=== PATIENT | male | born 1995 | race Caucasian/White ===

== ENCOUNTER 2018-09-07 00:23 | Emergency (ER) | payer OTHER, SELFPAY ==
[2018-09-07 00:24] VITALS: BP 145/84; PULSE 108; RESP 15; TEMP 36.7; BMI 24.4
--- NOTE | 2018-09-07 00:43 | CT_ITS ---
STUDY: CT CERVICAL SPINE WITHOUT CONTRAST REASON FOR EXAM: Male, 23 years old. Fall. Loss of consciousness. Left-sided pain. RADIATION DOSAGE (If Supplied By Facility): CTDIvol = ( 25.68 ) mGy, DLP = ( 546.68 ) mGycm TECHNIQUE: High resolution transaxial imaging was performed without contrast material. Sagittal and coronal images were reconstructed. Individualized dose optimization techniques were used for this CT. COMPARISON: None FINDINGS: Normal craniovertebral junction. Normal anterior atlantoaxial articulation. Normal odontoid process. Normal cervical lordosis. Normal vertebral bodies and posterior osseous elements. C2-3: Normal endplates. Normal disc height and morphology. Normal central canal and intervertebral neuroforamina. C3-4: Normal endplates. Normal disc height and morphology. Normal central canal and intervertebral neuroforamina. C4-5: Normal endplates. Normal disc height and morphology. Normal central canal and intervertebral neuroforamina. C5-6: Normal endplates. Normal disc height and morphology. Normal central canal and intervertebral neuroforamina. C6-7: Normal endplates. Normal disc height and morphology. Normal central canal and intervertebral neuroforamina. C7-T1: Normal endplates. Normal disc height and morphology. Normal central canal and intervertebral neuroforamina. Normal visualized soft tissue structures. CT/Spine Cervical without Contras IMPRESSION: Normal unenhanced CT examination of the cervical spine. Electronically Signed: Garry Moura, at 2:50 EDT Tel , Service support ,
--- NOTE | 2018-09-07 00:43 | CT_ITS ---
HISTORY: FALL DOWN STAIRS/POS. LOC. LAC lt side of head. Pt shielded EXAMINATION: CT Head or Brain W/O Contrast TECHNIQUE: Multiple axial images were obtained of the brain without intravenous contrast. A radiation dose optimization technique was used for this scan. IV Contrast dosage and agent: None. COMPARISON: None FINDINGS: Normal ventricles and normal shane-white matter differentiation. No intracranial mass, hemorrhage, or acute parenchymal abnormality. Posterior fossa structures are unremarkable. No suspicious extra-axial fluid collection. The calvarium appears intact. As visualized, the mastoids and paranasal sinuses are clear. CT/Brain/Head without Contrast IMPRESSION: Normal CT brain without contrast. Individualized dose optimization techniques were used for this CT. at 0138 Reported and signed by: Jayme Rose MD Electronically Signed: Jayme Rose, at 1:37 EDT Tel , Service support ,
--- NOTE | 2018-09-07 00:44 | RAD_ITS ---
HISTORY: pt fell down steps tonight. left side chest pain. EXAMINATION/TECHNIQUE: XR Chest 1 View: Portable COMPARISON: None FINDINGS: Normal heart and mediastinum. Lung volumes appear normal. No vascular congestion, pleural effusion, or acute pulmonary infiltration. No pneumothorax. The bony thorax appears intact. RAD/Chest 1 View (Portable) IMPRESSION: Normal chest. at 0110 Reported and signed by: Jayme Rose MD Electronically Signed: Jayme Rose, at 1:09 EDT Tel , Service support ,
--- NOTE | 2018-09-07 00:44 | ED.VISSUMM ---
- ER Visit Summary Date of Service: 09/07/18 Chief Complaint: Fall History of Present Illness: The patient is a [address] Garcia. He reports that he was on the steps and lost his balance. He fell off the steps. He is unsure how high this was. He did hit his head and had a loss of consciousness for an unclear period of time. He complains of a headache that is 10 out of 10 in severity. He reports he has pain to the posterior ribs on the left that is also 10 out of 10 severity. He denies any shortness of breath. He denies any back or extremity pain. Patient is unsure when his last tetanus shot was. He reports that he had 5-6 beers tonight. Physical Examination: Vitals: Stable. Afebrile. Head: 3 synovator laceration to the left parietal area. Minimal active bleeding. Neck: No vertebral tenderness. Full ROM without difficulty. Unable to clear by the Nexus criteria due to his intoxication. Back: No vertebral tenderness. General: A&O x 3. NAD. Cardiovascular exam: Regular rate and rhythm, no murmur, rub or gallop. Respiratory exam: Moderate tenderness to palpation to the posterior ribs on the left. No pain with anterior posterior compression of his chest. No crepitus. Clear to auscultation bilaterally. No wheezes or stridor. Abdominal exam: Soft, nontender, nondistended, normal bowel sounds. No pain in RUQ or LUQ specifically. No peritoneal signs. Extremity: Atraumatic. No pain with range of motion. Test Results: CT brain shows no intercranial hemorrhage. CT C-spine shows no acute disease. Chest x-ray shows no obvious rib fractures or pneumothorax. Emergency Department Course and Treatment: Patient had his tetanus updated. He was treated with Tylenol for his pain. He refused other pain medications. He had his wound anesthetized and repaired. He tolerated this well. Treatment Plan: Patient will be discharged instructions to follow-up with his primary care physician in 10 days for staple removal. Return to the emergency department for any worsening symptoms. Disposition: To home in improved and stable condition. Impression: 1. Fall. 2. Concussion. 3. Scalp laceration, 3 cm, repaired. 4. Chest wall contusion. Procedure note: Wound was cleansed with chlorhexidine soap. Anesthetized with 1% lidocaine without epinephrine. Copiously irrigated with normal saline. Wound was explored there is no foreign material present. It was closed with 3 puja. The patient tolerated it well. This note was generated with [employer] dictation software. It may contain incorrect words, spelling, and punctuation that were not noted in review of the chart prior to signing ED Disposition - Plan for ED Patient: Instructions: ED Concussion Referrals: Kel Bingham [Primary Care Provider] - 10 Day for suture removal
[2018-09-07] MEDS: Diphth,Pertuss(Acell),Tet Vac 0.5 ML Vial IM (00:50)
[2018-09-07] MEDS: Acetaminophen 500 MG Tablet 1000 MG PO (00:51)
[2018-09-07 02:23] VITALS: BP 133/88; PULSE 97; RESP 15; O2SAT 99
[2018-09-07] MEDS: HYDROcodone Bitartrate/Apap 5/325 Tablet PO (02:34)
[2018-09-07 02:58] VITALS: BP 133/88; PULSE 97; RESP 15; O2SAT 99
== END 2018-09-07 02:59 | disposition home or self-care (01) ==
PROVIDERS: Emergency Provider Emergency Medicine; Family Provider Family Medicine; PCP Family Medicine
DX: S01.01XA Laceration without foreign body of scalp, initial encounter (principal); S06.0X9A Concussion with loss of consciousness of unspecified duration, initial encounter; S20.212A Contusion of left front wall of thorax, initial encounter; W10.9XXA Fall (on) (from) unspecified stairs and steps, initial encounter; Y93.9 Activity, unspecified; Y92.9 Unspecified place or not applicable; Y99.9 Unspecified external cause status; Z23 Encounter for immunization; F10.129 Alcohol abuse with intoxication, unspecified
CPT/HCPCS: 12002; 70450; 71045; 72125; 90715; 99284

== ENCOUNTER 2018-09-16 18:04 | Emergency (ER) | payer OTHER, SELFPAY ==
[2018-09-16 18:05] VITALS: BP 122/82; PULSE 92; RESP 18; TEMP 36.6; O2SAT 98; BMI 23.6
--- NOTE | 2018-09-16 18:51 | CT_ITS ---
STUDY: CT BRAIN WITHOUT CONTRAST REASON FOR EXAM: Male, 23 years old. Headache RADIATION DOSAGE (If Supplied By Facility): DLP = ( 812.98 ) mGycm TECHNIQUE: Transaxial CT imaging of the brain was performed without administration of intravenous contrast material. Individualized dose optimization techniques were used for this CT. COMPARISON: CT head September 07, 2018 FINDINGS: There is no acute bleed or infarct. There are normal white matter tracts. The ventricles are normal in configuration. There is no hydrocephalus. The visualized paranasal sinuses are clear. The mastoid air cells are well aerated. There is no skull fracture. CT/Brain/Head without Contrast IMPRESSION: No acute intracranial abnormality. Electronically Signed: Chapito Solares, at 19:16 EDT Tel , Service support ,
--- NOTE | 2018-09-16 20:12 | ED.VISSUMM ---
- ER Visit Summary Date of Service: 09/16/18 Chief Complaint: Concussion History of Present Illness: The patient is a 23 M Who states a little over week ago he fell off a staircase causing head injury on the left side of his head. He received puja. He had a CT brain and cervical spine that were negative. States he followed up with his primary care physician on Wednesdays due to continued headache and nausea. States that today his left arm felt numb and tingly and was advised to come to the emergency department. He states he was still able to move the arm and the strength still there just the sensation seemed different. He notes no further vomiting. He is due to see his doctor tomorrow to have his puja removed to see how his caution is healing. He notes continued light sensitivity. Physical Examination: Afebrile vital signs are stable Gen: Well-nourished well-developed sitting in a darkened room with sunglasses on Head: Normocephalic healing scalp laceration. Eyes: Perrl EOMI mild light sensitivity ENT: TMs clear no rhinorrhea moist mucous membranes Neck: Supple no lymphadenopathy no JVD nontender CVS: Regular rate rhythm no murmurs normal S1-S2 Respiratory: No distress clear to auscultation bilaterally chest nontender Abdomen: Soft nontender nondistended normal bowel sounds no masses Back: Nontender Extremity: Nontender no edema Skin: Normal color no rash Neuro: alert orientated ?3 CN II-XII intact normal strength sensation reflexes gait cerebellar Psych: Normal affect normal mood Test Results: CT brain showed no acute findings. Specifically no delayed bleeding. Emergency Department Course and Treatment: I will write for Zofran. Patient is to follow-up with his primary care physician tomorrow. I suggested that he may need to see the concussion clinic. Impression: Postconcussive syndrome This note was generated with [employer] dictation software. It may contain incorrect words, spelling, and punctuation that were not noted in review of the chart prior to signing ED Disposition - Plan for ED Patient: Disposition: Home or Assisted Living Instructions: ED Concussion Prescriptions: Ondansetron [Zofran Odt] 4 mg PO Q6H PRN PRN #20 tab PRN Reason: Nausea Referrals: Kel Bingham [Primary Care Provider] - Keep Luises appointment
== END 2018-09-16 20:20 | disposition home or self-care (01) ==
PROVIDERS: Emergency Provider Emergency Medicine; Family Provider Family Medicine; PCP Family Medicine
DX: F07.81 Postconcussional syndrome (principal); S01.01XA Laceration without foreign body of scalp, initial encounter; W10.9XXA Fall (on) (from) unspecified stairs and steps, initial encounter; Y93.9 Activity, unspecified; Y92.9 Unspecified place or not applicable; Y99.9 Unspecified external cause status
CPT/HCPCS: 70450; 99282

== ENCOUNTER → 2023-07-15 | Outpatient (CLI) | payer OTHER, SELFPAY ==
[2023-07-15 17:51] LABS: Erythrocyte Sedimentation Rate < 1 mm/hr (0-20)
[2023-07-15 17:56] LABS: CRP < 2.90 mg/L (0.0-3.0)
[2023-07-17 14:09] LABS: Endomysial Antibody IgA Negative (Negative); Immunoglobulin A 110 mg/dL (90-386); t-Transglutaminase IgA <2 U/mL (0-3)
== END | disposition home or self-care (01) ==
PROVIDERS: PCP Family Medicine; Referring Provider Internal Medicine Gastroenterology; Visit Provider Internal Medicine Gastroenterology
DX: R19.7 Diarrhea, unspecified (principal)
CPT/HCPCS: 36415; 82784; 83516; 85652; 86140; 86255

== ENCOUNTER → 2023-07-16 | Outpatient (CLI) | payer OTHER, SELFPAY | END | disposition home or self-care (01) | LOC: LAB.FUTURE 04:47 | PROVIDERS: PCP Family Medicine; Visit Provider Internal Medicine Gastroenterology | DX: R19.7 Diarrhea, unspecified (principal) ==

== ENCOUNTER → 2023-07-19 | Outpatient (CLI) | payer OTHER, SELFPAY ==
[2023-07-25 18:08] LABS: Calprotectin, Stool 43 ug/g (0-120)
== END | disposition home or self-care (01) ==
PROVIDERS: PCP Family Medicine; Referring Provider Internal Medicine Gastroenterology; Visit Provider Internal Medicine Gastroenterology
DX: R19.7 Diarrhea, unspecified (principal)
CPT/HCPCS: 83993

== ENCOUNTER → 2023-08-05 | Outpatient (CLI) | payer OTHER, SELFPAY ==
--- NOTE | 2023-08-05 15:22 | CT_ITS ---
ACR Level 3 findings have been noted. An addendum which confirms receipt of the report will follow. STUDY: CT ABDOMEN AND PELVIS WITH CONTRAST REASON FOR EXAM: Male, 28 years old. Abnormal weight loss RADIATION DOSAGE (If Supplied By Facility): CTDIvol = ( 12.02 ) mGy, DLP = ( 1186.02 ) mGycm TECHNIQUE: Transaxial images were obtained from the dome of the diaphragm to the symphysis pubis without oral contrast. Oral and amp; IV BREEZA NEUTRAL and amp; 100mL Isovue-300 was administered. Sagittal and coronal images were reconstructed. Individualized dose optimization techniques were used for this CT. COMPARISON: None. FINDINGS: The visualized lung bases are unremarkable. The visualized portions of the heart are within normal limits. Normal liver. Normal gallbladder and extrahepatic biliary system. Normal spleen. Normal pancreas. Normal bilateral adrenal glands. Normal right kidney. Normal left kidney. Normal visualized stomach. Multiple air-fluid levels throughout the proximal small bowel probable transition point mid segment. Normal colon. Appendix not identified. Normal abdominal aorta. Normal inferior vena cava. Normal retroperitoneum. Normal urinary bladder. Normal abdominal wall. Normal osseous structures. CT/Abdomen/Pelvis WITH Contrast IMPRESSION: Probable low-grade small bowel obstruction. Surgical consultation recommended. Electronically Signed: Sanjiv Carrillo MD at 0:09 EDT ,
== END | disposition home or self-care (01) ==
PROVIDERS: PCP Family Medicine; Referring Provider Internal Medicine Gastroenterology; Visit Provider Internal Medicine Gastroenterology
DX: R63.4 Abnormal weight loss (principal); R19.7 Diarrhea, unspecified
CPT/HCPCS: 74177; Q9967

== ENCOUNTER → 2023-10-07 | Outpatient (CLI) | payer OTHER, SELFPAY ==
[2023-10-08 15:09] LABS: Giardia Lamblia, Stool EIA Negative (Negative)
== END | disposition home or self-care (01) ==
PROVIDERS: PCP Family Medicine; Referring Provider Internal Medicine Gastroenterology; Visit Provider Internal Medicine Gastroenterology
DX: R19.7 Diarrhea, unspecified (principal)
CPT/HCPCS: 82705; 87329

== ENCOUNTER 2023-10-17 15:55 | Inpatient (IN) | payer OTHER, SELFPAY ==
[2023-10-17] VITALS (7 sets, daily range): BP systolic 115–153; BP diastolic 70–102; PULSE 69–120; RESP 12–18; TEMP 36.5–37.1; O2SAT 98–100; BMI 23.3
[2023-10-17 16:40] LABS: Absolute Lymphocyte Count 1.08 X10^3/uL (0.83-4.51); Absolute Neutrophil Count 5.7 X10^3/uL (2.0-7.7); Basophil# 0.05 X10^3/uL; Basophil% 0.7 % (0-1); Eosinophil# 0.02 X10^3/uL; Eosinophils% 0.3 % (0-5); Hemoglobin 15.2 g/dL (13.0-16.5); Lymphocyte # 1.08 X10^3/ul (0.83-4.51); Lymphocyte % 14.4 % (19-41); Mean Corp Hgb Conc 37.1 g/dL (32-36); Mean Corpuscular Hgb 33.7 pg (27.0-32.0); Mean Corpuscular Volume 90.9 fL (80-94); Mean Platelet Vol. 9.1 fl (6.2-12.0); Monocyte# 0.62 X10^3/uL; Monocyte% 8.3 % (0-10); NRBC Flagged by Analyzer 0 % (0-5); Neutrophil # 5.72 X10^3/uL (2.7-7.7); Platelet Count 184 K/mm3 (150-450); RBC Distribution Width CV 10.9 % (11.6-14.6); RBC Distribution Width SD 36.7 fl (35.1-43.9); Red Blood Count 4.51 M/mm3 (4.6-6.2); White Blood Count 7.5 K/mm3 (4.4-11.0)
[2023-10-17 16:55] LABS: Anion Gap 11 (5-15); BUN 14 mg/dL (7-18); BUN/Creat Ratio 10.9 RATIO (10-20); Calcium,Total 9.6 mg/dL (8.5-10.1); Chloride 99 mmol/L (98-107); Creatinine, Serum 1.29 mg/dL (0.70-1.30); EST Glomerular Filtration Rate 70 mL/min (>60); Est Glom Filt Rate - Afr Amer 84 mL/min (>60); Glucose 113 mg/dL (74-106); Potassium 3.3 mmol/L (3.5-5.1); Sodium Level 135 mmol/L (136-145)
[2023-10-17 16:57] LABS: Alcohol, Blood (Medical)-Serum < 3.0 mg/dL
--- NOTE | 2023-10-17 17:07 | EDS_ITS ---
HPI <WALT Liu - Last Filed: 10/17/23 18:47> History of Present Illness Chief Complaint: Substance Abuse Narrative Narrative: 28-year-old male states he drinks anywhere from 6-18 beers daily over the last 3 months. He thinks his last drink was around October 12. He states he had a few days of nausea vomiting and diarrhea but today has been able to keep down water. However he is concerned because last night he became paranoid and started having what he thinks are hallucinations. He heard his son crying and playing under the bed although he was not in the house. He was sitting in a quiet room when he started hearing music even though nothing was playing. He states he is serious about wanting to get clean from alcohol and is here requesting detox. He takes medications for IBS and he started buspirone yesterday from his primary care for anxiety. He also chews tobacco. He denies any other recreational drug use. No history of seizures. [facility] <WALT Liu - Last Filed: 10/17/23 18:47> [facility] Medical History (Updated 10/17/23 @ 18:47 by WALT Liu) IBS (irritable bowel syndrome) Anxiety Home Medications ?Medication ?Instructions ?Recorded ?Last Taken ?Type buspirone 5 mg tablet 5 mg PO BID 10/17/23 Unknown History hyoscyamine sulfate 0.125 mg 0.125 mg sublingual DAILY 10/17/23 Unknown History sublingual tablet Allergy/AdvReac Type Severity Reaction Status Date / Time cefaclor (From [facility]) Allergy Unknown Verified 10/17/23 15:56 Surgical History (Updated 10/17/23 @ 16:47 by Luis Teixeira) Hx of tonsillectomy Social History Smoking Status: Current some day smoker tobacco type: cigarettes and smokeless tobacco ROS <WALT Liu - Last Filed: 10/17/23 18:47> ROS ED ROS Narrative Constitutional: Negative for fever, chills, malaise. CVS: Negative for chest pain. Respiratory: Negative for shortness of breath. GI: Positive for nausea, vomiting, diarrhea. EXAM <WALT Liu - Last Filed: 10/17/23 18:47> Physical Exam Narrative Exam Narrative: CONST: Patient sitting in no acute distress. EYES: Normal inspection. NECK: Normal inspection. RESP: No respiratory distress, CTAB. CVS: Regular rate and rhythm, no murmur, no gallop. SKIN: Color normal, no rash, warm, dry, intact. EXTREMITIES: Normal appearance, no pedal edema. NEURO: Alert and answering questions appropriately. PSYCH: Mildly anxious. Const Vital Signs: 10/17/23 15:56 10/17/23 16:55 10/17/23 17:00 Temperature 97.7 F L Temperature Source Temporal Pulse Rate 120 H 69 78 Respiratory Rate 18 18 18 Blood Pressure 141/102 H 128/74 H 145/71 H Blood Pressure Mean 115 92 95 Pulse Ox 98 99 99 Oxygen Delivery Method Room Air Room Air Room Air 10/17/23 17:36 10/17/23 18:00 Temperature 98.7 F Temperature Source Pulse Rate 94 82 Respiratory Rate 16 16 Blood Pressure 124/88 H 115/70 Blood Pressure Mean 100 85 Pulse Ox 100 98 Oxygen Delivery Method Room Air <Fletcher Wing MD - Last Filed: 10/17/23 19:41> Physical Exam Const Vital Signs: 10/17/23 15:56 10/17/23 16:55 10/17/23 17:00 Temperature 97.7 F L Temperature Source Temporal Pulse Rate 120 H 69 78 Respiratory Rate 18 18 18 Blood Pressure 141/102 H 128/74 H 145/71 H Blood Pressure Mean 115 92 95 Pulse Ox 98 99 99 Oxygen Delivery Method Room Air Room Air Room Air 10/17/23 17:36 10/17/23 18:00 Temperature 98.7 F Temperature Source Pulse Rate 94 82 Respiratory Rate 16 16 Blood Pressure 124/88 H 115/70 Blood Pressure Mean 100 85 Pulse Ox 100 98 Oxygen Delivery Method Room Air MDM <WALT Liu - Last Filed: 10/17/23 18:47> [facility] Narrative Medical decision making narrative: Patient here for alcohol detox. His last drink was 4 days ago and he had N/V/D symptoms which have improved but he is now having paranoia and hallucinations. He appears anxious but nontoxic. He was tachycardic around 120 in triage but during my examination has normal vital signs. Overall exam is benign. CBC is within normal limits. Sodium is 135, potassium 3.3, normal renal function. Liver enzymes are elevated with AST of 385, ALT 344, total bilirubin 1.6, normal alk phos of 78. Urine drug screen is negative and alcohol level negative. Case was discussed with the hospitalist for admission. Lab Data Attestation: I reviewed the patient's lab results. Labs: Laboratory Results - last 24 hr 10/17/23 16:20 WBC 7.5 RBC 4.51 L Hgb 15.2 Hct 41.0 MCV 90.9 MCH 33.7 H MCHC 37.1 H RDW Std Deviation 36.7 RDW Coeff of Augustin 10.9 L Plt Count 184 MPV 9.1 Immature Gran % (Auto) 0.300 Neut % (Auto) 76.0 H Lymph % (Auto) 14.4 L [place] % (Auto) 8.3 Eos % (Auto) 0.3 Baso % (Auto) 0.7 Absolute Neuts (auto) 5.7 Absolute Lymphs (auto) 1.08 Nucleated RBC % 0 Sodium 135 L Potassium 3.3 L Chloride 99 Carbon Dioxide 25.0 Anion Gap 11 BUN 14 Creatinine 1.29 Est GFR (MDRD) Af Amer 84 Est GFR (MDRD) Non-Af 70 BUN/Creatinine Ratio 10.9 Glucose 113 H Calcium 9.6 Phosphorus 3.2 Magnesium 2.2 Total Bilirubin 1.60 H Direct Bilirubin 0.46 H AST 385 H ALT 344 H Alkaline Phosphatase 78 Total Protein 7.5 Albumin 4.0 Globulin 3.5 Urine Opiates Screen NEGATIVE Urine Methadone Screen NEGATIVE Ur Barbiturates Screen NEGATIVE Ur Phencyclidine Scrn NEGATIVE Ur Amphetamines Screen NEGATIVE MDMA (Ecstasy) Screen NEGATIVE U Benzodiazepines Scrn NEGATIVE Urine Cocaine Screen NEGATIVE U Cannabinoids Screen NEGATIVE Ur Drug Screen Comment Ethyl Alcohol < 3.0 <Fletcher Wing MD - Last Filed: 10/17/23 19:41> [facility] Lab Data Labs: Laboratory Results - last 24 hr 10/17/23 16:20 WBC 7.5 RBC 4.51 L Hgb 15.2 Hct 41.0 MCV 90.9 MCH 33.7 H MCHC 37.1 H RDW Std Deviation 36.7 RDW Coeff of Augustin 10.9 L Plt Count 184 MPV 9.1 Immature Gran % (Auto) 0.300 Neut % (Auto) 76.0 H Lymph % (Auto) 14.4 L [place] % (Auto) 8.3 Eos % (Auto) 0.3 Baso % (Auto) 0.7 Absolute Neuts (auto) 5.7 Absolute Lymphs (auto) 1.08 Nucleated RBC % 0 Sodium 135 L Potassium 3.3 L Chloride 99 Carbon Dioxide 25.0 Anion Gap 11 BUN 14 Creatinine 1.29 Est GFR (MDRD) Af Amer 84 Est GFR (MDRD) Non-Af 70 BUN/Creatinine Ratio 10.9 Glucose 113 H Calcium 9.6 Phosphorus 3.2 Magnesium 2.2 Total Bilirubin 1.60 H Direct Bilirubin 0.46 H AST 385 H ALT 344 H Alkaline Phosphatase 78 Total Protein 7.5 Albumin 4.0 Globulin 3.5 Urine Opiates Screen NEGATIVE Urine Methadone Screen NEGATIVE Ur Barbiturates Screen NEGATIVE Ur Phencyclidine Scrn NEGATIVE Ur Amphetamines Screen NEGATIVE MDMA (Ecstasy) Screen NEGATIVE U Benzodiazepines Scrn NEGATIVE Urine Cocaine Screen NEGATIVE U Cannabinoids Screen NEGATIVE Ur Drug Screen Comment Ethyl Alcohol < 3.0 Management Discussion w/another healthcare provider: Hospitalist Treatment and Re-Evaluation :: Dr. Wing: I have personally performed a face to face assessment of the patient and have reviewed the POLLY Note. I performed a substantive portion of the visit including all aspects of the following. My bell findings include: History is detox from alcohol. No prior rehab reportedly. Last drink 3 to 4 days ago, but had hallucinations today. Exam is afebrile. Vital signs noted. Positive tachycardia. Mild shakiness. Lungs clear to auscultation bilaterally. Abdomen soft nontender with normal active bowel sounds. Medical Decision Making: Check labs. Discussed with hospitalist for detox admission. Admit in stable condition. Other additions or changes: [None] Discharge Plan Dx/Rx/DC Orders Clinical Impression: Alcohol abuse, Desire for detoxification, Transaminitis Disposition Disposition: Acute Care Hospital [facility] Discharge Date/Time: 10/17/23 18:52
[2023-10-17 17:08] LABS: Amphetamine Urine VISTA NEGATIVE (<1000 ng/mL); Barbiturate Urine VISTA NEGATIVE (< 200 ng/mL); Benzodiazepine Urine VISTA NEGATIVE (< 200 ng/mL); Cocaine Urine VISTA NEGATIVE (< 300 ng/mL); Ecstacy Urine VISTA NEGATIVE (< 500 ng/mL); Methadone Urine VISTA NEGATIVE (< 300 ng/mL); PCP Urine VISTA NEGATIVE (< 25 ng/mL); THC Urine VISTA NEGATIVE (< 50 ng/mL); Vista UDS pH Range 6
[2023-10-17 18:05] LABS: Magnesium 2.2 mg/dL (1.6-2.6); Phosphorus 3.2 mg/dL (2.5-4.9)
--- NOTE | 2023-10-17 18:20 | HP.PCM.HOS_ITS ---
[facility] - General General Date of Admission: 10/17/23 Date of Service: 10/17/23 Chief Complaint: Acute alcohol withdrawal symptoms for 5 days. HPI Narrative HAMILTON LOCKE, is a 28 male with history of chronic alcohol use disorder with dependence tolerance and withdrawal came to ED for 5 days of alcohol withdrawal symptoms. He stated that he drinks anywhere between 6-24 bottles of beer every day. His last drink was about 18 bottles of beer on Saturday and may be small drink on Saturday. Since then he has not drunken alcohol. For last 5 days he is experiencing auditory and visual hallucinations, goosebumps, tremors, sweating and generalized aches. He said his anxiety is through the roof. He denies any seizure. Complain of insomnia, nightmares and bad dreams. In ED patient, clinically looks dry. Heart rate was 120/min. Blood pressure elevated in systolic 150s. Patient is further admitted on [facility]. He denies history of liver disease including cirrhosis. Denies chronic stigmata of cirrhosis or alcoholic hepatitis. Family history: His maternal grandfather was also alcohol dependence [facility] Medical History IBS (irritable bowel syndrome) Anxiety Home Medications ?Medication ?Instructions ?Recorded ?Last Taken ?Type buspirone 5 mg tablet 5 mg PO BID 10/17/23 Unknown History hyoscyamine sulfate 0.125 mg 0.125 mg sublingual DAILY 10/17/23 Unknown History sublingual tablet Allergy/AdvReac Type Severity Reaction Status Date / Time cefaclor (From [facility]) Allergy Unknown Verified 10/17/23 15:56 Surgical History Hx of tonsillectomy Social History Smoking Status: Current some day smoker tobacco type: cigarettes and smokeless tobacco ROS ROS Narrative Constitutional: Reports very fatigue and weakness. No fever. HEENT: Reports systems reviewed and no addt'l complaints, except as documented Respiratory/Chest: No acute shortness of breath or respiratory distress or wheezing. CVS: No chest pain pressure or tightness. Gastrointestinal: Denies coffee ground emesis, hematemesis or vomiting Genitourinary: Denies burning urination or new urinary tract symptoms Musculoskeletal: Generalized muscle weakness, pain and aches. Denies acute joint pain or limited range of motion. No acute injury Neurologic: Denies seizure-like symptoms. skin: No ulcer. No rash Endocrinology: Reports systems reviewed and no addt'l complaints, except as documented Hematologic/Lymphatic: Reports systems reviewed and no addt'l complaints, except as documented Rest 14 ROS are negative except as mentioned in HPI Vital Signs Vital Signs Vital Signs: 10/17/23 15:56 10/17/23 16:55 10/17/23 17:00 Temperature 97.7 F L Temperature Source Temporal Pulse Rate 120 H 69 78 Respiratory Rate 18 18 18 Blood Pressure 141/102 H 128/74 H 145/71 H Blood Pressure Mean 115 92 95 Pulse Ox 98 99 99 Oxygen Delivery Method Room Air Room Air Room Air 10/17/23 17:36 Temperature 98.7 F Temperature Source Pulse Rate 94 Respiratory Rate 16 Blood Pressure 124/88 H Blood Pressure Mean 100 Pulse Ox 100 Oxygen Delivery Method Physical Exam Narrative General: Alert, Oriented x3, Cooperative HEENT: Atraumatic, PERRLA, EOMI, Normocephalic Oral: Oral mucosa dry. No Gingival or Mucosal Lesions/ Ulcerations Neck: Supple, No JVD, Negative Carotid Bruits Chest wall/Lungs: Air entry diminished in bilateral lung bases. No crepitation/rhonchi Cardiovascular: Regular rate, Regular Rhythm, Normal S1, Normal S2, No M/G/R Abdomen: Bowel Sounds Present, Soft, Non Tender, Non-Distended : No dysuria. No renal angle tenderness. No suprapubic tenderness. Extremities: No edema, Capillary Refill Less than 3 Seconds Skin: No rashes, No breakdown Musculoskeletal: Generalized tremors. Muscle strength 5/5 at major joints. No Tenderness to Palpation of Joints or Extremities Neurological: Cranial nerves II-XII grossly intact, DTR 2+/4. No acute focal neurological deficit. Psych/Mental Status: Anxious, tremors. Results Lab / Micro Data 10/17/23 16:20 10/17/23 16:20 Labs: Laboratory Results - last 24 hr 10/17/23 16:20: WBC 7.5, RBC 4.51 L, Hgb 15.2, Hct 41.0, MCV 90.9, MCH 33.7 H, M CHC 37.1 H, RDW Std Deviation 36.7, RDW Coeff of Augustin 10.9 L, Plt Count 184, MPV 9.1, Immature Gran % (Auto) 0.300, Neut % (Auto) 76.0 H, Lymph % (Auto) 14.4 L, [place] % (Auto) 8.3, Eos % (Auto) 0.3, Baso % (Auto) 0.7, Absolute Neuts (auto) 5.7, Absolute Lymphs (auto) 1.08, Nucleated RBC % 0, Sodium 135 L, Potassium 3.3 L, Chloride 99, Carbon Dioxide 25.0, Anion Gap 11, BUN 14, Creatinine 1.29, Est GFR (MDRD) Af Amer 84, Est GFR (MDRD) Non-Af 70, BUN/Creatinine Ratio 10.9, G lucose 113 H, Calcium 9.6, Phosphorus 3.2, Magnesium 2.2, Urine Opiates Screen NEGATIVE, Urine Methadone Screen NEGATIVE, Ur Barbiturates Screen NEGATIVE, Ur Phencyclidine Scrn NEGATIVE, Ur Amphetamines Screen NEGATIVE, MDMA (Ecstasy) Screen NEGATIVE, U Benzodiazepines Scrn NEGATIVE, Urine Cocaine Screen NEGATIVE, U Cannabinoids Screen NEGATIVE, Ur Drug Screen Comment , Ethyl Alcohol < 3.0 Assessment & Plan Assessment/Plan (1) Acute hyperactive alcohol withdrawal delirium: PLAN: Plan 1. Acute alcohol withdrawal syndrome with history of chronic alcohol use disorder with dependence and tolerance: Patient is being admitted to MedSurg floor. Patient on phenobarbital based order set along with other adjunctive medications gabapentin, Bentyl, Vistaril, clonidine, Klonopin as needed for alcohol withdrawal symptom control. Patient is on thiamine and folate acid. [facility] monitor. logistics project manager 180 consulted. 2. Mild hyponatremia: Sodium is 135. Probably due to low solute intake and beer potomania. IV fluid Ringer lactate ordered. 3. Mild hold for serum potassium more than 5.0: Potassium is being replaced. Serum magnesium and phosphorus level are normal. 4. Unclear chronic or acute on chronic alcoholic hepatitis: No prior liver chemistry to compare. Total bilirubin 1.6, direct 0.4. ALT AST around 350. Alkaline phosphatase normal. Albumin 4.0. Globin 3.5. Right upper quadrant sonogram ordered. Monitor liver chemistry 5. Chronic IBS: Patient takes sublingual hyoscyamine which is nonformulary. 6. Chronic anxiety disorder: Patient on buspirone 5 mg twice daily. Continued. DVT prophylaxis, low risk. Early ambulation encouraged. Full code confirmed with the patient Laboratory Results 10/17/23 16:20: WBC 7.5, RBC 4.51 L, Hgb 15.2, Hct 41.0, MCV 90.9, MCH 33.7 H, M CHC 37.1 H, RDW Std Deviation 36.7, RDW Coeff of Augustin 10.9 L, Plt Count 184, MPV 9.1, Immature Gran % (Auto) 0.300, Neut % (Auto) 76.0 H, Lymph % (Auto) 14.4 L, [place] % (Auto) 8.3, Eos % (Auto) 0.3, Baso % (Auto) 0.7, Absolute Neuts (auto) 5.7, Absolute Lymphs (auto) 1.08, Nucleated RBC % 0, PT Pending, INR Pending, Sodium 135 L, Potassium 3.3 L, Chloride 99, Carbon Dioxide 25.0, Anion Gap 11, BUN 14, Creatinine 1.29, Est GFR (MDRD) Af Amer 84, Est GFR (MDRD) Non-Af 70, BUN/Creatinine Ratio 10.9, Glucose 113 H, Calcium 9.6, Phosphorus 3.2, Magnesium 2.2, Total Bilirubin 1.60 H, Direct Bilirubin 0.46 H, GGT Pending, AST 385 H, A LT 344 H, Alkaline Phosphatase 78, Total Protein 7.5, Albumin 4.0, Globulin 3.5, Urine Opiates Screen NEGATIVE, Urine Methadone Screen NEGATIVE, Ur Barbiturates Screen NEGATIVE, Ur Phencyclidine Scrn NEGATIVE, Ur Amphetamines Screen NEGATIVE, MDMA (Ecstasy) Screen NEGATIVE, U Benzodiazepines Scrn NEGATIVE, Urine Cocaine Screen NEGATIVE, U Cannabinoids Screen NEGATIVE, Ur Drug Screen Comment , Ethyl Alcohol < 3.0 Charges/Coding Visit Charges Inpatient E&M: 29856 Init Hosp L3
[2023-10-17 18:31] LABS: AST(SGOT) 385 U/L (15-37); Alanine Aminotransfer ALT/SGPT 344 U/L (16-61); Alkaline Phosphatase 78 U/L (45-117); Bilirubin, Direct 0.46 mg/dL (0.00-0.30); Globulin 3.5 g/dL (2.2-4.2); Protein, Total 7.5 g/dL (6.4-8.2)
[2023-10-17] MEDS: Potassium Chloride Oral Tablet 20 MEQ 40 MEQ PO (18:48)
[2023-10-17] MEDS: Phenobarbital 32.4 MG Tablet 64.8 MG PO ×2 (19:52→23:21)
[2023-10-17] MEDS: traZODone 100 MG Tablet PO (19:56)
[2023-10-17] MEDS: hydrOXYzine PAM 25 MG Capsule 50 MG PO (19:56)
[2023-10-17] MEDS: Lactated Ringers 1,000 ML 125 ML IV (19:56)
--- NOTE | 2023-10-17 20:23 | US_ITS ---
STUDY: ABDOMINAL ULTRASOUND - RIGHT UPPER QUADRANT REASON FOR VISIT: Male, 28 years old Elevated liver chemistry. -- Including spleen. TECHNIQUE: Ultrasound evaluation of the right upper quadrant was performed with real-time and static shane-scale imaging. TECHNICAL QUALITY: Adequate. COMPARISON: None. FINDINGS: Liver: The liver measures 16.5 cm. There is increased echogenicity consistent with fatty infiltration. The bile ducts are within normal limits. There is hepatic color flow. The direction of portal flow is hepatopetal. There is no demonstrated mass lesion. Gallbladder: Normal distended gallbladder. The gallbladder wall measures 2 mm. There is a negative sonographic Amanda''s sign. There is no pericholecystic fluid. There are no gallstones. Common Bile Duct (C.B.D.): The common bile duct measures mm. Pancreas: There is nonvisualization of the pancreas.. Right Kidney: Normal size of the right kidney. The right kidney measures 10.0 cm. Normal renal cortex. The right cortex measures 1.6 cm. There is no demonstrated renal mass or cyst. There is no right hydronephrosis. US/Abdomen Limited IMPRESSION: Fatty infiltration of liver. Electronically Signed: Justice Kruger MD at 11:18 EDT ,
[2023-10-17] MEDS: Nicotine Polacrilex 2 MG GUM PO (20:34)
[2023-10-17] MEDS: busPIRone 5 MG Tablet PO (20:37)
[2023-10-17 20:41] LABS: International Normalized Ratio 1.1; Prothrombin Time (Protime)PT. 13.9 SECONDS (11.7-14.9)
[2023-10-18] VITALS (24 sets, daily range): BP systolic 89–130; BP diastolic 52–88; PULSE 46–94; RESP 16–22; TEMP 36.2–36.8; O2SAT 96–100; BMI 23.6
--- NOTE | 2023-10-18 00:05 | NURSING ---
Pt brought up from security, Pt found walking around pcu. Pt restless at this time.
[2023-10-18] MEDS: Gabapentin 300 MG Capsule PO (00:54)
--- NOTE | 2023-10-18 02:39 | PN.HOSP_ITS ---
Hospitalist Note Patient with significant hallucinations, attempting to walk off the floor, locking himself in the bathroom with significant paranoia and agitation admitted with acute alcohol withdrawal with significant transaminitis. Given worsening delirium and current presentation we will transition to the ICU, will add an additional phenobarbital IV dose x 1 now and trial Precedex. Per protocol will request involvement of pharmacy benefit manager team.
[2023-10-18] MEDS: hydrOXYzine PAM 25 MG Capsule 50 MG PO ×2 (03:27→15:46)
[2023-10-18] MEDS: Loperamide 2 MG Capsule PO (03:27)
[2023-10-18] MEDS: Phenobarbital 32.4 MG Tablet 64.8 MG PO ×6 (03:27→23:50)
[2023-10-18] MEDS: dexMEDEtomidine 400 MCG in 0.9% Normal Saline (100mL Bag) 96 ML 9.8 MCG CONT INF ×2 (03:41→12:03)
[2023-10-18] MEDS: Phenobarbital Sodium 130 MG/ML Vial 100 MG IV (04:30)
[2023-10-18 05:15] LABS: ALB/GLOB Ratio 1.2 RATIO (0.9-2.4); AST(SGOT) 325 U/L (15-37); Alanine Aminotransfer ALT/SGPT 346 U/L (16-61); Albumin, Serum 3.6 g/dL (3.2-5.0); Alkaline Phosphatase 71 U/L (45-117); Anion Gap 8 (5-15); BUN 14 mg/dL (7-18); BUN/Creat Ratio 11.7 RATIO (10-20); Calcium,Total 9.4 mg/dL (8.5-10.1); Chloride 106 mmol/L (98-107); EST Glomerular Filtration Rate 76 mL/min (>60); Est Glom Filt Rate - Afr Amer 92 mL/min (>60); Estimated Creatinine Clearance 99.69 ml/min; Glucose 140 mg/dL (74-106); Protein, Total 6.6 g/dL (6.4-8.2); Sodium Level 139 mmol/L (136-145)
--- NOTE | 2023-10-18 07:21 | PN.HOSP_ITS ---
Reason for Visit Reason for Visit: Diagnoses Alcohol use, unspecified with withdrawal delirium (10/17/23) Subjective Subjective Per nursing, he did wake up earlier he takes medications but since then somnolence. Objective Data Objective Data Vital Signs: Vital Signs Temp Pulse Resp BP Pulse Ox O2 Del Method 36.7 C 63 20 H 95/63 97 Room Air 10/18/23 03:30 10/18/23 06:00 10/18/23 06:00 10/18/23 06:00 10/18/23 06:00 10/18/23 06:00 Oxygen Delivery Method Room Air Weight: 79 kg Body Mass Index (BMI) 23.6 Intake & Output: Intake and Output for Last 24 Hours 10/16/23 10/17/23 10/18/23 23:59 23:59 23:59 Intake Total 1022.70 / 1022.70 Balance 1022.70 / 1022.70 Lab / Micro Data 10/17/23 16:20 10/18/23 03:20 Labs: Laboratory Results - last 24 hr 10/17/23 16:20: WBC 7.5, RBC 4.51 L, Hgb 15.2, Hct 41.0, MCV 90.9, MCH 33.7 H, M CHC 37.1 H, RDW Std Deviation 36.7, RDW Coeff of Augustin 10.9 L, Plt Count 184, MPV 9.1, Immature Gran % (Auto) 0.300, Neut % (Auto) 76.0 H, Lymph % (Auto) 14.4 L, [place] % (Auto) 8.3, Eos % (Auto) 0.3, Baso % (Auto) 0.7, Absolute Neuts (auto) 5.7, Absolute Lymphs (auto) 1.08, Nucleated RBC % 0, PT 13.9, INR 1.1, Sodium 135 L, Potassium 3.3 L, Chloride 99, Carbon Dioxide 25.0, Anion Gap 11, BUN 14, Creatinine 1.29, Est GFR (MDRD) Af Amer 84, Est GFR (MDRD) Non-Af 70, BUN/Creatinine Ratio 10.9, Glucose 113 H, Calcium 9.6, Phosphorus 3.2, Magnesium 2.2, Total Bilirubin 1.60 H, Direct Bilirubin 0.46 H, AST 385 H, ALT 344 H, Alkaline Phosphatase 78, Total Protein 7.5, Albumin 4.0, Globulin 3.5, Urine Opiates Screen NEGATIVE, Urine Methadone Screen NEGATIVE, Ur Barbiturates Screen NEGATIVE, Ur Phencyclidine Scrn NEGATIVE, Ur Amphetamines Screen NEGATIVE, MDMA (Ecstasy) Screen NEGATIVE, U Benzodiazepines Scrn NEGATIVE, Urine Cocaine Screen NEGATIVE, U Cannabinoids Screen NEGATIVE, Ur Drug Screen Comment , Ethyl Alcohol < 3.0 10/18/23 03:20: Sodium 139, Potassium 3.0 L, Chloride 106, Carbon Dioxide 25.0, Anion Gap 8, BUN 14, Creatinine 1.20, Estim Creat Clear Calc 99.69, Est GFR (MDRD) Af Amer 92, Est GFR (MDRD) Non-Af 76, BUN/Creatinine Ratio 11.7, Glucose 140 H, Calcium 9.4, Total Bilirubin 0.80, AST 325 H, ALT 346 H, Alkaline Phosphatase 71, Total Protein 6.6, Albumin 3.6, Globulin 3.0, Albumin/Globulin Ratio 1.2 Physical Exam Const alert Constitutional Narrative: Sleeping, did not wake to voice. Afebrile. HEENT head/scalp atraumatic and moist oral mucous membranes Neck no lymphadenopathy Neck Narrative: No thyromegaly Resp normal respiratory effort and no retractions GI normal to inspection, nondistended, normoactive bowel sounds Extremity normal to inspection and no clubbing, cyanosis or edema Neuro Sensorium / Orientation: awake and alert Psych affect normal Assessment & Plan Assessment/Plan (1) Acute hyperactive alcohol withdrawal delirium: PLAN: Plan Acute alcohol withdrawal with delirium tremens * Medications are phenobarbital drip, thiamine and folate. Overnight, patient got worse requiring dexmedetomidine drip * When patient is more alert, addiction medicine to see and to help facilitate outpatient addiction programs Hypokalemia: * replace. monitor acute on chronic alcoholic hepatitis: * Right upper quadrant sonogram ordered. * Monitor liver chemistry Chronic conditions: * Chronic IBS: Patient takes sublingual hyoscyamine which is nonformulary. * Chronic anxiety disorder: Patient on buspirone 5 mg twice daily. Continued. DVT prophylaxis, low risk. Early ambulation encouraged. Charges/Coding Visit Charges Inpatient E&M: 22717 Subs Hosp L2
[2023-10-18] MEDS: Potassium Chloride 10mEq/100mL 10 MEQ/100 ML IV.SOLN. 100 MEQ IV BOLUS ×4 (09:04→12:52)
[2023-10-18] MEDS: Thiamine Hydrochloride 100 MG Tablet PO (09:10)
[2023-10-18] MEDS: busPIRone 5 MG Tablet PO ×2 (09:10→19:35)
[2023-10-18] MEDS: Folic Acid 1 MG Tablet PO (09:10)
--- NOTE | 2023-10-18 10:41 | CON.PCM.CC_ITS ---
HPI Consult Data Date of Consult: 10/19/23 HPI Narrative HPI Narrative: HAMILTON LOCKE, is a 28 M who presents [facility] Medical History IBS (irritable bowel syndrome) Anxiety Home Medications ?Medication ?Instructions ?Recorded ?Last Taken ?Type buspirone 5 mg tablet 5 mg PO BID 10/17/23 Unknown History hyoscyamine sulfate 0.125 mg 0.125 mg sublingual DAILY 10/17/23 Unknown History sublingual tablet Allergy/AdvReac Type Severity Reaction Status Date / Time cefaclor (From [facility]) Allergy Unknown Verified 10/17/23 15:56 Surgical History Hx of tonsillectomy Social History Smoking Status: Current some day smoker tobacco type: cigarettes and smokeless tobacco Objective Data Objective Data Vital Signs: Vital Signs Last response 3 Temperature 36.3 C L 10/18/23 09:00 Temperature Source Temporal 10/18/23 09:00 Pulse Rate 65 10/18/23 09:00 Pulse Strength Normal (2+) 10/17/23 22:00 Respiratory Rate 20 H 10/18/23 09:00 Respiratory Effort Normal, Non-Labored 10/18/23 04:00 Respiratory Depth Normal 10/18/23 04:00 Respiratory Pattern Normal 10/18/23 04:00 Blood Pressure 113/72 10/18/23 09:00 Blood Pressure Mean 85 10/18/23 09:00 Blood Pressure Source Monitor 10/18/23 09:00 Blood Pressure Position Semi-Fowlers 10/18/23 09:00 Blood Pressure Location Right Arm 10/18/23 09:00 Pulse Ox 99 10/18/23 09:00 Oxygen Delivery Method Room Air 10/18/23 09:00 I&O: I&O Last 24 Hours 3 10/17/23 10/17/23 10/18/23 11:59 23:59 11:59 Intake Total 1052.10 / 1052.10 Balance 1052.10 / 1052.10 I&O: Total Stay 3 10/17/23 15:55 thru 10/18/23 09:00 Intake Total 1052.10 Balance 1052.10 Current Meds Ordered / Administered: Current meds ordered / Administered 3 Generic Name Dose Route Start Last Admin Trade Name Freq PRN Reason Stop Dose Admin Acetaminophen 500 mg 10/17/23 19:33 Acetaminophen 500 Mg Tablet PO Q4H PRN PRN Pain 1-10 or Temp > 100.4 F Bisacodyl 10 mg 10/17/23 19:33 Bisacodyl 10 Mg Suppository RC DAILY PRN Constipation Buspirone HCl 5 mg 10/17/23 22:00 10/18/23 09:10 Buspirone 5 Mg Tablet PO 5 mg BID NATACHA Administration Dicyclomine HCl 20 mg 10/17/23 19:33 Dicyclomine 10 Mg Capsule PO Q6H PRN PRN abdominal discomfort Folic Acid 1 mg 10/18/23 08:00 10/18/23 09:10 Folic Acid 1 Mg Tablet PO 1 mg DAILY@0800 NATACHA Administration Gabapentin 300 mg 10/17/23 19:33 10/18/23 00:54 Gabapentin 300 Mg Capsule PO 300 mg Q8H PRN PRN Administration moderate to severe anxiety Hydroxyzine Pamoate 50 mg 10/17/23 19:33 10/18/23 03:27 Hydroxyzine Cristina 25 Mg Capsule PO 50 mg Q4H PRN PRN Administration mild anxiety Dexmedetomidine HCl 400 mcg/ 100 mls @ 9.752 mls/hr 10/18/23 03:14 10/18/23 09:00 Sodium Chloride CONT INF 0.5 mcg/kg/hr .[id number] NATACHA 9.8 mls/hr Titration Protocol 0.5 MCG/KG/HR Potassium Chloride 10 meq in 100 mls @ 100 mls/hr 10/18/23 08:00 10/18/23 09:04 IV BOLUS 10/18/23 11:59 100 mls/hr Q1H NATACHA Administration Ibuprofen 400 mg 10/17/23 19:33 Ibuprofen 400 Mg Tablet PO Q8H PRN PRN Pain Score 1-10 Loperamide HCl 2 mg 10/17/23 19:33 10/18/23 03:27 Loperamide 2 Mg Capsule PO 2 mg Q4H PRN PRN Administration Loose Stools Nicotine 21 mg 10/17/23 19:33 10/18/23 09:10 Nicotine 21 Mg Patch TD 21 mg DAILY NATACHA Administration Nicotine Polacrilex 2 mg 10/17/23 20:44 Nicotine Polacrilex 2 Mg Gum PO Q2H PRN PRN SMOKING CESSATION Nutritional Formula (Lactose Free) 120 ml 10/18/23 08:00 10/18/23 09:10 Ensure Plus High Protein 120 Ml Liquid PO Not Given TIDCM NATACHA Ondansetron HCl 8 mg 10/17/23 19:33 Ondansetron 8 Mg Tablet PO Q8H PRN PRN NAUSEA Phenobarbital 97.2 mg 10/17/23 19:33 10/18/23 09:09 Phenobarbital 32.4 Mg Tablet PO 10/22/23 03:32 97.2 mg Q4H NATACHA Administration Taper Senna 2 tablet 10/17/23 19:33 Senna Tablet PO QHS PRN Constipation Thiamine HCl 100 mg 10/18/23 08:00 10/18/23 09:10 Thiamine Hydrochloride 100 Mg Tablet PO 100 mg DAILYCM NATACHA Administration Trazodone HCl 100 mg 10/17/23 19:33 10/17/23 19:56 Trazodone 100 Mg Tablet PO 100 mg QHS PRN Administration INSOMNIA Lab / Micro Data 10/17/23 16:20 10/19/23 03:55 Labs: Laboratory Results - last 24 hr 10/17/23 16:20: WBC 7.5, RBC 4.51 L, Hgb 15.2, Hct 41.0, MCV 90.9, MCH 33.7 H, M CHC 37.1 H, RDW Std Deviation 36.7, RDW Coeff of Augustin 10.9 L, Plt Count 184, MPV 9.1, Immature Gran % (Auto) 0.300, Neut % (Auto) 76.0 H, Lymph % (Auto) 14.4 L, [place] % (Auto) 8.3, Eos % (Auto) 0.3, Baso % (Auto) 0.7, Absolute Neuts (auto) 5.7, Absolute Lymphs (auto) 1.08, Nucleated RBC % 0, PT 13.9, INR 1.1, Sodium 135 L, Potassium 3.3 L, Chloride 99, Carbon Dioxide 25.0, Anion Gap 11, BUN 14, Creatinine 1.29, Est GFR (MDRD) Af Amer 84, Est GFR (MDRD) Non-Af 70, BUN/Creatinine Ratio 10.9, Glucose 113 H, Calcium 9.6, Phosphorus 3.2, Magnesium 2.2, Total Bilirubin 1.60 H, Direct Bilirubin 0.46 H, AST 385 H, ALT 344 H, Alkaline Phosphatase 78, Total Protein 7.5, Albumin 4.0, Globulin 3.5, Urine Opiates Screen NEGATIVE, Urine Methadone Screen NEGATIVE, Ur Barbiturates Screen NEGATIVE, Ur Phencyclidine Scrn NEGATIVE, Ur Amphetamines Screen NEGATIVE, MDMA (Ecstasy) Screen NEGATIVE, U Benzodiazepines Scrn NEGATIVE, Urine Cocaine Screen NEGATIVE, U Cannabinoids Screen NEGATIVE, Ur Drug Screen Comment , Ethyl Alcohol < 3.0 10/18/23 03:20: Sodium 139, Potassium 3.0 L, Chloride 106, Carbon Dioxide 25.0, Anion Gap 8, BUN 14, Creatinine 1.20, Estim Creat Clear Calc 99.69, Est GFR (MDRD) Af Amer 92, Est GFR (MDRD) Non-Af 76, BUN/Creatinine Ratio 11.7, Glucose 140 H, Calcium 9.4, Total Bilirubin 0.80, AST 325 H, ALT 346 H, Alkaline Phosphatase 71, Total Protein 6.6, Albumin 3.6, Globulin 3.0, Albumin/Globulin Ratio 1.2 Assessment and Plan . Assessment and plan: 28 yo alcoholic man admitted 10/17/23 w/ s/s of alcohol w/d syndrome. He was treated w/ multiple agents, including benzodiazepines and barbiturates,. Despite this, he remained hyperactive, confused, w/ reports of aimless wandering throughout the hospital premises. He has been transferred to the ICU for precedex infusion. He is currently resting comfortably. VSS. Physical Exam: Gen - NAD HEENT - MMM Resp - CTAB CV - RRR. No m/g/r Abd - Soft, NT, ND Ext - No c/c/e. Skin - No rashes? Neuro - Sedated, calm, NF I have reviewed the pertinent vital sign, laboratory, and imaging data. ASSESSMENT: # Alcohol w/d syndrome, w/ hyperactive delirium # Hypokalemia # EtOH abuse PLAN: -precedex infusion as needed -benzodiazepines as required -supplement K+ -Thiamine FEN/GI: NPO Proph DVT/GI: SCDs, protonix gtt Critical Care Time: 60 min The entirety of this encounter was done via Telemedicine
[2023-10-18] MEDS: Ensure Plus High Protein 120 ML LIQUID PO ×2 (11:54→15:41)
[2023-10-18] MEDS: Nicotine Polacrilex 2 MG GUM PO (19:54)
[2023-10-18] MEDS: dexMEDEtomidine 400 MCG in 0.9% Normal Saline (100mL Bag) 96 ML 7.8 MCG CONT INF (23:09)
[2023-10-19] VITALS (14 sets, daily range): BP systolic 89–122; BP diastolic 52–77; PULSE 44–92; RESP 11–20; TEMP 36.3–37.1; O2SAT 98–100; BMI 24.0
[2023-10-19] MEDS: Phenobarbital 32.4 MG Tablet 64.8 MG PO ×6 (03:46→23:10)
[2023-10-19 04:09] LABS: GGTP 364 IU/L (0-65)
[2023-10-19 04:27] LABS: ALB/GLOB Ratio 1.1 RATIO (0.9-2.4); AST(SGOT) 293 U/L (15-37); Alanine Aminotransfer ALT/SGPT 416 U/L (16-61); Albumin, Serum 2.9 g/dL (3.2-5.0); Alkaline Phosphatase 51 U/L (45-117); Anion Gap 3 (5-15); BUN 12 mg/dL (7-18); Calcium,Total 8.6 mg/dL (8.5-10.1); Chloride 108 mmol/L (98-107); Creatinine, Serum 1.09 mg/dL (0.70-1.30); EST Glomerular Filtration Rate 85 mL/min (>60); Est Glom Filt Rate - Afr Amer 102 mL/min (>60); Estimated Creatinine Clearance 109.76 ml/min; Globulin 2.6 g/dL (2.2-4.2); Glucose 119 mg/dL (74-106); Potassium 3.7 mmol/L (3.5-5.1); Protein, Total 5.5 g/dL (6.4-8.2); Sodium Level 138 mmol/L (136-145)
[2023-10-19] MEDS: Nicotine Polacrilex 2 MG GUM PO ×7 (04:37→22:22)
[2023-10-19] MEDS: TITRATION PARAMETER CHANGE 1 EACH IV (05:02)
--- NOTE | 2023-10-19 07:11 | PCM.PN.HOSP ---
Reason for Visit Reason for Visit: Diagnoses Alcohol use, unspecified with withdrawal delirium (10/17/23) Subjective Subjective Feeling better today. No recollection of my encounter yesterday. Dexmedetomidine drip weaned off Objective Data Objective Data Vital Signs: Vital Signs Temp Pulse Resp BP Pulse Ox O2 Del Method 36.3 C L 50 L 17 98/67 98 Room Air 10/19/23 04:00 10/19/23 06:59 10/19/23 06:59 10/19/23 06:59 10/19/23 06:59 10/19/23 06:59 Oxygen Delivery Method Room Air Weight: 80.6 kg Body Mass Index (BMI) 24.0 Intake & Output: Intake and Output for Last 24 Hours 10/17/23 10/18/23 10/19/23 23:59 23:59 23:59 Intake Total 1580.97 / 2387.60 1761.83 / 1761.83 Output Total 1050 / 1650 1400 / 1400 Balance 530.97 / 737.60 361.83 / 361.83 Lab / Micro Data 10/17/23 16:20 10/19/23 03:55 Labs: Laboratory Results - last 24 hr 10/17/23 16:20: GGT 364 H 10/19/23 03:55: Sodium 138, Potassium 3.7, Chloride 108 H, Carbon Dioxide 27.0, Anion Gap 3 L, BUN 12, Creatinine 1.09, Estim Creat Clear Calc 109.76, Est GFR (MDRD) Af Amer 102, Est GFR (MDRD) Non-Af 85, BUN/Creatinine Ratio 11.0, Glucose 119 H, Calcium 8.6, Total Bilirubin 0.50, AST 293 H, ALT 416 H, Alkaline Phosphatase 51, Total Protein 5.5 L, Albumin 2.9 L, Globulin 2.6, Albumin/Globulin Ratio 1.1 Radiography Diagnostic Testing: Radiology Impression Abdomen Ultrasound 10/17/23 20:23 IMPRESSION: Fatty infiltration of liver. Electronically Signed: Justice Kruger MD at 11:18 EDT , Physical Exam Const alert and no apparent distress Constitutional Narrative: Up eating breakfast. HEENT head/scalp atraumatic and moist oral mucous membranes Extremity normal to inspection and full ROM Neuro Sensorium / Orientation: awake and alert Psych affect normal Assessment & Plan Assessment/Plan (1) Acute hyperactive alcohol withdrawal delirium: PLAN: Plan Acute alcohol withdrawal with delirium tremens Medications are phenobarbital drip, thiamine and folate. Overnight, patient got worse requiring dexmedetomidine drip Addiction medicine to see and facilitate outpatient program. Patient expressed interest in outpatient addiction services. Hypokalemia: replace. monitor acute on chronic alcoholic hepatitis: Right upper quadrant sonogram ordered. Monitor liver chemistry Chronic conditions: Chronic IBS: Patient takes sublingual hyoscyamine which is nonformulary. Chronic anxiety disorder: Patient on buspirone 5 mg twice daily. Continued. DVT prophylaxis, low risk. Early ambulation encouraged. Charges/Coding Visit Charges Inpatient E&M: 59367 [facility] Hosp L1
[2023-10-19] MEDS: Thiamine Hydrochloride 100 MG Tablet PO (08:05)
[2023-10-19] MEDS: Folic Acid 1 MG Tablet PO (08:05)
[2023-10-19] MEDS: Ensure Plus High Protein 120 ML LIQUID PO ×3 (08:07→17:41)
[2023-10-19] MEDS: busPIRone 5 MG Tablet PO ×2 (08:28→22:22)
[2023-10-19] MEDS: hydrOXYzine PAM 25 MG Capsule 50 MG PO (12:10)
[2023-10-19] MEDS: Dicyclomine 10 MG Capsule 20 MG PO (12:10)
--- NOTE | 2023-10-19 12:58 | ADDICTION ---
Met with Pt to complete RAMP assessments. Pt actively participated and was agreeable to tx recommendations. pt reports that he would like to see his son prior to admission. Pt was give resources to [facility] in [facility], however he will make those arrangements himself due to wanting to d/c to home for a week prior to admitting to inpatient treatment.
[2023-10-19] MEDS: Gabapentin 300 MG Capsule PO (20:06)
[2023-10-20] MEDS: Phenobarbital 32.4 MG Tablet 64.8 MG PO (03:15)
[2023-10-20 03:19] VITALS: BP 115/78; PULSE 79; RESP 16; TEMP 36.6; O2SAT 100
--- NOTE | 2023-10-20 07:59 | PN.HOSP_ITS ---
Reason for Visit Reason for Visit: Diagnoses Alcohol use, unspecified with withdrawal delirium (10/17/23) Subjective Subjective Feeling well. Objective Data Objective Data Vital Signs: Vital Signs Temp Pulse Resp BP Pulse Ox O2 Del Method 36.6 C 79 16 115/78 100 Room Air 10/20/23 03:19 10/20/23 03:19 10/20/23 03:19 10/20/23 03:19 10/20/23 03:19 10/20/23 03:19 Oxygen Delivery Method Room Air Weight: 80.6 kg Body Mass Index (BMI) 24.0 Intake & Output: Intake and Output for Last 24 Hours 10/18/23 10/19/23 10/20/23 23:59 23:59 23:59 Intake Total 1580.97 / 2387.60 1768.88 / 1768.88 1300 / 1300 Output Total 1050 / 1650 1400 / 1400 Balance 530.97 / 737.60 368.88 / 368.88 1300 / 1300 Lab / Micro Data 10/17/23 16:20 10/19/23 03:55 Physical Exam Const alert and no apparent distress HEENT head/scalp atraumatic and moist oral mucous membranes Assessment & Plan Assessment/Plan (1) Acute hyperactive alcohol withdrawal delirium: PLAN: Plan Acute alcohol withdrawal with delirium tremens * Medications are phenobarbital, thiamine and folate. Patient did require dexmedetomidine gtt, but was weaned off 10/18 * Patient was seen by addiction medicine and he is planning on making arrangements himself for possibly facility and [facility]. Patient really wants to get home to be able to see his son for about a week and then look to see what the neck step will be. Hypokalemia: * improved after replacement. acute on chronic alcoholic hepatitis: * US shows fatty infiltration. Chronic conditions: * Chronic IBS: Patient takes sublingual hyoscyamine * Chronic anxiety disorder: Patient on buspirone 5 mg twice daily. Continued. DVT prophylaxis, low risk. Early ambulation encouraged.
[2023-10-20 09:46] VITALS: BP 118/79; PULSE 80; RESP 16; TEMP 36.7; O2SAT 100
[2023-10-20 09:47] VITALS: BP 118/79; PULSE 80; RESP 16; TEMP 36.7; O2SAT 100
[2023-10-20] MEDS: busPIRone 5 MG Tablet PO (09:50)
[2023-10-20] MEDS: Thiamine Hydrochloride 100 MG Tablet PO (09:50)
[2023-10-20] MEDS: Folic Acid 1 MG Tablet PO (09:50)
[2023-10-20] MEDS: Nicotine Polacrilex 2 MG GUM PO (09:50)
[2023-10-20] MEDS: Ensure Plus High Protein 120 ML LIQUID PO (09:59)
[2023-10-20] MEDS: Dicyclomine 10 MG Capsule 20 MG PO (09:59)
--- NOTE | 2023-10-20 10:09 | DS.PCM_ITS ---
Providers Date of Admission: 10/17/23 Primary Care Physician: Dr. Kel Bingham MD Consultations 10/18/23 03:14 Consult: [employer] / Pulmonary Medicine Routine Consulting Provider: [employer]/Pulmonary Med Reason for Consult: EtOH withdrawal, requiring transition for precedex trial EMERGENT Consult: No MD Notified: Yes Date Notified: 10/18/23 Time Notified: 02:37 Method of Notification: Verbal Reason For Visit: DETOX Diagnosis Discharge Diagnosis (1) Acute hyperactive alcohol withdrawal delirium: Status: Acute Code(s): F10.931 - Alcohol use, unspecified with withdrawal delirium Plan Acute alcohol withdrawal with delirium tremens * Medications are phenobarbital, thiamine and folate. Patient did require dexmedetomidine gtt, but was weaned off 10/18 * Patient was seen by addiction medicine and he is planning on making arrangements himself for possibly facility [facility]. Patient really wants to get home to be able to see his son for about a week and then look to see what the neck step will be. Hypokalemia: * improved after replacement. acute on chronic alcoholic hepatitis: * US shows fatty infiltration. Chronic conditions: * Chronic IBS: Patient takes sublingual hyoscyamine * Chronic anxiety disorder: Patient on buspirone 5 mg twice daily. Continued. DVT prophylaxis, low risk. Early ambulation encouraged. Medications at Discharge Home Medications buspirone 5 mg tablet 5 mg PO BID 10/17/23 hyoscyamine sulfate 0.125 mg sublingual tablet 0.125 mg sublingual DAILY 10/17/23 multivitamin 1 tab PO DAILY #30 tabs 10/20/23 Hospital Course Operations None Procedures None Summary of Care Provided Hospital Course: Patient presents with acute alcohol withdrawal. Started on phenobarbital taper but got worse and did require Precedex drip for about 1 day. Patient came to and was much more coherent and did well. Patient was observed in his course of been otherwise uncomplicated. Patient will be discharged to home. Patient did meet with addiction medicine but he is going to defer any decision at this time in regards to outpatient programs so that he may spend time with his son and then he stated that he is going to facilitate some phone calls to facilities for his ongoing treatment. Weight / BMI Weight Weight: 80.6 kg Body Mass Index (BMI) 24.0 ABG / Lab / Microbiology Data 10/17/23 16:20 10/19/23 03:55 D/C Instructions Discharge Diet: No restrictions Meaningful Use Info Meaningful Use Meaningful Use Diagnoses (Choose all that apply): None applicable Ischemic Stroke Statin Dosing Therapy Reference: STATIN DOSE THERAPY REFERENCE: * Patients > 75 years receive moderate or high dose statin therapy. * Patients 75 years or YOUNGER should receive HIGH intensity statin dose unless contraindicated. You will be required to document reason for non-treatment if statin daily dose does not meet guidelines. HIGH DOSE STATIN THERAPY DAILY Atorvastatin > than or = to 40 mg Rosuvastatin > than or = to 20 mg Amlodipine + Atorvastatin > than or = to 2.5/40 mg Ezetimibe + Simvastatin 10/80 mg Simvastatin 80mg Discharge Plan Admission Admit Date/Time: 10/17/23 18:20 Primary Reason for Your Visit: Alcohol withdrawal Attending Provider: Arjun Hensley Primary Care Provider: Kel Bingham Consulting Providers: Sunny Nunn; Edmundo Traore; Shaheed Kirk; Rashel Brambila; Rohan Post; Piyush Ashford; Fatemeh Marquis; Eligio Waddell; Tee Yang; Che Thompson; Ulysses Clayton; El Murry; Jeison Brewer; Ganesh Manzano; Víctor Gutierres; Manjinder Burrell Instructions Additional Instructions / Restrictions: Please follow-up with addiction services. Discharge Orders/Prescriptions Prescriptions: New multivitamin Tablet 1 tab PO DAILY Qty: 30 0RF Continued buspirone 5 mg tablet 5 mg PO BID hyoscyamine sulfate 0.125 mg tablet, sublingual 0.125 mg sublingual DAILY Referrals / Follow Up: Kel Bingham MD [Primary Care Provider] - Disposition Disposition (needs filled in before D/C Order can be placed): Home, Self Care Charges/Coding Visit Charges Inpatient E&M: 76321 Disch Hosp
== END 2023-10-20 12:00 | disposition home or self-care (01) | DRG 897 ==
LOC: ED 17:19 → MS3 18:27 → ICU 10-18 04:27 → MS3 10-19 10:33
PROVIDERS: Physician Assistant; Admitting Provider Internal Medicine; Emergency Provider Emergency Medicine; PCP Family Medicine
DX: F10.231 Alcohol dependence with withdrawal delirium (principal); E87.1 Hypo-osmolality and hyponatremia; K70.10 Alcoholic hepatitis without ascites; F41.9 Anxiety disorder, unspecified; F17.220 Nicotine dependence, chewing tobacco, uncomplicated; F17.210 Nicotine dependence, cigarettes, uncomplicated; K58.9 Irritable bowel syndrome, unspecified; E87.6 Hypokalemia; Y90.0 Blood alcohol level of less than 20 mg/100 ml; Z79.899 Other long term (current) drug therapy
CPT/HCPCS: 76705; 80048; 80053; 80076; 80307; 82077; 82977; 83735; 84100; 85025; 85610; 97802; 99284; J7120